=== PATIENT | male | born 1975 | race Caucasian/White ===

== ENCOUNTER 2021-09-21 17:06 | Emergency (ER) | payer BC ==
[2021-09-21] MEDS ORDERED: NORFLEX 100 MG100 MG PO (18:45)
[2021-09-21] MEDS ORDERED: MEDROL DOSEPAK 24 MG PO (18:45)
== END 2021-09-21 19:30 | disposition home or self-care (01) ==
LOC: ER1 17:06
DX: S39.012A Strain of muscle, fascia and tendon of lower back, initial encounter (principal); Z88.5 Allergy status to narcotic agent; X50.0XXA Overexertion from strenuous movement or load, initial encounter
CPT/HCPCS: 96372; 99283; J1100; J1885